=== PATIENT | female | born 1985 | race Caucasian/White ===

== ENCOUNTER 2017-04-05 00:53 | Emergency (ER) | payer BC, MEDICAID ==
[2017-04-05 01:43] LABS: ABSOLUTE BASOPHILS # (AUTO) 0.1 10^3/uL (0.0-0.2); ABSOLUTE EOSINOPHILS # (AUTO) 0.2 10^3/uL (0.0-0.6); ABSOLUTE LYMPHOCYTES (AUTO) 4.5 10^3/uL (0.5-4.7); ABSOLUTE MONOCYTES (AUTO) 0.7 10^3/uL (0.1-1.4); ABSOLUTE NEUT (AUTO) 7.3 10^3/uL (1.7-8.2); BASOPHILS % (AUTO) 0.6 % (0-2); EOSINOPHILS % (AUTO) 1.5 % (0-6); HEMATOCRIT 43.2 % (36.0-47.0); HEMOGLOBIN 14.5 g/dL (12.0-15.5); HGB HCT DIFFERENCE 0.3; LYMPHOCYTES % (AUTO) 35.5 % (13-45); MEAN CORPUSCULAR HEMOGLOBIN 32.7 pg (27.0-33.4); MEAN CORPUSCULAR HGB CONC 33.5 g/dL (32.0-36.0); MEAN CORPUSCULAR VOLUME 98 fl (80-97); MONOCYTES % (AUTO) 5.2 % (3-13); RED BLOOD COUNT 4.43 10^6/uL (3.72-5.28); RED CELL DISTRIBUTION WIDTH 12.4 % (11.5-14.0); SEGMENTED NEUTROPHILS % (AUTO) 57.2 % (42-78); WHITE BLOOD COUNT 12.8 10^3/uL (4.0-10.5)
[2017-04-05 02:12] LABS: ALANINE AMINOTRANSFERASE 39 U/L (9-52); ALBUMIN 4.7 g/dL (3.5-5.0); ALCOHOL 260 mg/dL (NONE DETECTED); ALKALINE PHOSPHATASE 82 U/L (38-126); ANION GAP 17 (5-19); ASPARTATE AMINO TRANSFERASE 31 U/L (14-36); BILIRUBIN,DIRECT 0.3 mg/dL (0.0-0.4); BILIRUBIN,TOTAL 0.5 mg/dL (0.2-1.3); BLOOD UREA NITROGEN 12 mg/dL (7-20); CARBON DIOXIDE 21 mmol/L (22-30); CHLORIDE 110 mmol/L (98-107); CREATININE RESULT 0.65 mg/dL (0.52-1.25); GLUCOSE 82 mg/dL (75-110); POTASSIUM 3.7 mmol/L (3.6-5.0); SODIUM 147.7 mmol/L (137-145); TOTAL PROTEIN 7.8 g/dL (6.3-8.2)
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
[2017-04-05 05:21] VITALS: BP 112/83
--- NOTE | 2017-04-05 12:05 | EKG REPORT ---
SEVERITY:- BORDERLINE ECG - SINUS OR ECTOPIC ATRIAL RHYTHM BORDERLINE LEFT AXIS DEVIATION LOW VOLTAGE IN FRONTAL LEADS BORDERLINE T ABNORMALITIES, INFERIOR LEADS : Confirmed by: Edith Hooper MD 05-Apr-2017 12:03:11
== END 2017-04-05 05:20 | disposition home or self-care (01) ==
LOC: ER 00:53
DX: F10.929 Alcohol use, unspecified with intoxication, unspecified (principal); Z79.899 Other long term (current) drug therapy; F17.200 Nicotine dependence, unspecified, uncomplicated
CPT/HCPCS: 36415; 80053; 80307; 84703; 85025; 93005; 93010; 99284

== ENCOUNTER 2018-06-15 13:33 | Emergency (ER) | payer BC ==
[2018-06-15] MEDS ORDERED: HALOPERIDOL LACTATE INJ 5 MG/1 ML VIAL IM ONE (13:55)
[2018-06-15 14:16] LABS: ABSOLUTE BASOPHILS # (AUTO) 0.1 10^3/uL (0.0-0.2); ABSOLUTE LYMPHOCYTES (AUTO) 3.4 10^3/uL (0.5-4.7); ABSOLUTE MONOCYTES (AUTO) 0.5 10^3/uL (0.1-1.4); EOSINOPHILS % (AUTO) 0.5 % (0-6); HEMATOCRIT 43.8 % (36.0-47.0); HEMOGLOBIN 15.1 g/dL (12.0-15.5); LYMPHOCYTES % (AUTO) 37.5 % (13-45); MEAN CORPUSCULAR HEMOGLOBIN 32.4 pg (27.0-33.4); MEAN CORPUSCULAR HGB CONC 34.4 g/dL (32.0-36.0); MEAN CORPUSCULAR VOLUME 94 fl (80-97); MONOCYTES % (AUTO) 5.2 % (3-13); PLATELET COUNT 296 10^3/uL (150-450); RED BLOOD COUNT 4.65 10^6/uL (3.72-5.28); SEGMENTED NEUTROPHILS % (AUTO) 55.8 % (42-78); TOTAL CELLS COUNTED % (AUTO) 100 %
[2018-06-15 14:37] LABS: ALANINE AMINOTRANSFERASE 32 U/L (9-52); ALBUMIN 4.9 g/dL (3.5-5.0); ALCOHOL 291 mg/dL (NONE DETECTED); ALKALINE PHOSPHATASE 87 U/L (38-126); ASPARTATE AMINO TRANSFERASE 42 U/L (14-36); BILIRUBIN,DIRECT 0.3 mg/dL (0.0-0.4); BILIRUBIN,TOTAL 0.6 mg/dL (0.2-1.3); BLOOD UREA NITROGEN 6 mg/dL (7-20); CALCIUM 9.6 mg/dL (8.4-10.2); CHLORIDE 108 mmol/L (98-107); GLUCOSE 95 mg/dL (75-110); POTASSIUM 4.1 mmol/L (3.6-5.0); TOTAL PROTEIN 8.2 g/dL (6.3-8.2)
[2018-06-15 14:39] LABS: ACETAMINOPHEN < 10 ug/mL (10-30); SALICYLATE < 1.0 mg/dL (2.0-20.0)
[2018-06-15 14:42] LABS: ANION GAP 20 (5-19); CARBON DIOXIDE 19 mmol/L (22-30); SODIUM 147.4 mmol/L (137-145)
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
[2018-06-15] MEDS ORDERED: CHLORPROMAZINE HCL 50 MG TABLET PO PRN (18:22)
[2018-06-15] MEDS: OLANZAPINE 5 MG TABLET PO SCH ×2 (18:28→22:54)
[2018-06-15 18:55] LABS: APPEARANCE,URINE CLOUDY; BILIRUBIN,URINE NEGATIVE (NEGATIVE); COLOR,URINE YELLOW; GLUCOSE, URINE NEGATIVE (NEGATIVE); KETONES,URINE 20 mg/dL (NEGATIVE); LEUKOCYTE ESTERASE,URINE SMALL (NEGATIVE); NITRITE,URINE NEGATIVE (NEGATIVE); PROTEIN,URINE 100 mg/dL (NEGATIVE); URINE SPECIFIC GRAVITY 1.016
[2018-06-15 19:05] LABS: URINE AMPHETAMINES SCREEN NEGATIVE; URINE BARBITURATES SCREEN NEGATIVE; URINE BENZODIAZEPINES SCREEN NEGATIVE; URINE METHADONE SCREEN NEGATIVE; URINE PHENCYCLIDINE SCREEN NEGATIVE
[2018-06-15 19:07] LABS: URINE COCAINE SCREEN NEGATIVE
[2018-06-15 19:12] LABS: URINE MARIJUANA (THC) SCREEN NEGATIVE
--- NOTE | 2018-06-15 21:03 | EKG REPORT ---
SEVERITY:- BORDERLINE ECG - SINUS TACHYCARDIA BORDERLINE PROLONGED QT INTERVAL : Confirmed by: Edith Hooper MD 15-Jun-2018 21:02:48
[2018-06-15] MEDS ORDERED: BENZTROPINE MESYLATE 1 MG TABLET PO SCH (22:00)
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
[2018-06-16] MEDS: OLANZAPINE 5 MG TABLET PO SCH (11:14)
[2018-06-16 13:41] VITALS: BP 114/66
--- NOTE | 2018-06-17 07:49 | PSYCHOLOGICAL NOTE ---
Psych Note - Psych Note Psych Note: Reason for Consult: manic and suicidal ideation Clinician conducted check in with patient Patient is awake and alert. Patient states that she is feeling much better today. Patient states that she rested well. Patient appears to be calm and very engaging. Patient denies delusions. Patient mood is euthymic. Patient denies suicidal ideation. Patient disclosed that her wants her to go to a treatment program in [place] but she says that she does not want to go. Patient is asking to see if she can call her if/when she is discharged. Patient is alert and oriented to person and place. Thought process is organized. Eye Contact is good. Conversational speech is good. Patient appears to have average intellectual ability. Medication Recommendations per [facility]'s contracted psychiatrist Dr. Eddy PETTY are as follows Cogentin 1mg every evening (script) Zyprexa 5mg Twice daily (script) Diagnosis 296.89 (f31.81) bipolar 2 disorder per history provided by the patient 291.9 (F10.99) unspecified alcohol related disorder Impression/Plan: Patient is recommended for rescind IVC and is cleared from acute psychiatric services. Patient does not meet IVC criteria per [place] GS 122C. Patient is no longer experiencing manic episodes. Patient denies suicidal ideation. Patient states that she is interested in rescheduling her appointment with her outpatient provider. Dr. Irene was consulted in the care and management of this patient; attending physician is in agreement with recommendations and disposition.
== END 2018-06-16 13:40 | disposition home or self-care (01) ==
LOC: ER 13:33
DX: F30.9 Manic episode, unspecified (principal); F10.921 Alcohol use, unspecified with intoxication delirium; Z78.1 Physical restraint status; R45.851 Suicidal ideations
CPT/HCPCS: 93005; 99285; 96372; 36415; 80307 ×4; 84703; 85025; 80053; 81001; 93010; J3490; J1630

== ENCOUNTER → 2020-09-25 | Outpatient (CLI) | payer BC ==
--- NOTE | 2020-09-25 09:56 | RADIOLOGY REPORT (SQ) ---
EXAM DESCRIPTION: L SPINE WHOLE IMAGES COMPLETED DATE/TIME: 09/25/2020 9:43 am REASON FOR STUDY: ACUTE MIDLINE LOW BACK PAIN W/O SCIATICA COMPARISON: None. NUMBER OF VIEWS: Five views including obliques. TECHNIQUE: AP, lateral, oblique, and sacral radiographic images acquired of the lumbar spine. LIMITATIONS: None. FINDINGS: MINERALIZATION: Normal. SEGMENTATION: Normal. No transitional anatomy. ALIGNMENT: Normal. 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 No additional evidence of fracture. DISCS: Preserved height. No significant osteophytes or end plate irregularity. POSTERIOR ELEMENTS: Pedicles and facets are intact. No pars defect or posterior arch defects. HARDWARE: None in the spine. PARASPINAL SOFT TISSUES: Normal. PELVIS: Intact as visualized. No fractures or worrisome bone lesions. SI joints intact. OTHER: No other significant finding. IMPRESSION: Triangular corticated ossific densities anterior and superior along the L3 and L5 verteb ral bodies most compatible with limbus vertebral bodies. No definitive evidence of acute bony abnorm ality of the lumbar spine. If high clinical concern MR could be considered for complete characteriza tion. TECHNICAL DOCUMENTATION: JOB ID: [id number] 2010 [employer]- All Rights Reserved Reading location - IP/workstation name: [email or web address]
== END ==
LOC: RAD 09:18
PROVIDERS: ATTEND Nurse Practitioner Family
DX: M54.5 Low back pain (principal)
CPT/HCPCS: 72110